=== PATIENT | female | born 1955 | race Caucasian/White ===

== ENCOUNTER 2017-04-28 19:20 | Emergency (ER) | payer BC ==
[2017-04-28] MEDS ORDERED: Ketorolac Tromethamine 30 MG/ML VIAL ONE (20:28)
[2017-04-28] MEDS ORDERED: diphenhydrAMINE HCl 50 MG/ML 1 ML VIAL ONE (20:28)
[2017-04-28] MEDS ORDERED: Metoclopramide HCl 10 MG/2 ML VIAL ONE (20:28)
[2017-04-28] MEDS ORDERED: methylPREDNISolone Sod Succ/PF 125 MG/2 ML VIAL ONE (21:59)
[2017-04-28] MEDS ORDERED: Magnesium Sulfate 2 GM/100 ML BAG ONE (21:59)
== END 2017-04-28 23:18 | disposition home or self-care (01) ==
LOC: ERS 19:20
DX: G43.909 Migraine, unspecified, not intractable, without status migrainosus (principal); M19.90 Unspecified osteoarthritis, unspecified site; K21.9 Gastro-esophageal reflux disease without esophagitis; E11.9 Type 2 diabetes mellitus without complications; I10 Essential (primary) hypertension; M06.9 Rheumatoid arthritis, unspecified; F41.9 Anxiety disorder, unspecified; F32.9 Major depressive disorder, single episode, unspecified
CPT/HCPCS: 96361; 96365; 96375; J1200; J1885; J2765; J2930; J3475

== ENCOUNTER 2017-10-28 04:04 | Observation (INO) | payer BC ==
[2017-10-28 05:19] LABS: #Basophils 0.1 thou/uL (0.0-0.2); #Eosinphils 0.7 thou/uL (0.0-0.7); #Lymphocytes 2.1 thou/uL (1.20-3.40); #Monocytes 0.7 thou/uL (0.11-0.59); #Neutrophils 6.9 thou/uL (1.40-6.50); %Basophils 0.8 % (0.0-1.0); %Eosinophils 6.7 % (0.0-10.0); %Lymphocytes 20.2 % (21.0-51.0); %Neutrophils 65.4 % (42.0-75.0); Hemoglobin 15.5 g/dL (12.0-16.0); Mean Corpuscular HGB CONC 33.5 g/dL (32.0-36.0); Mean Corpuscular Volume 89.5 fl (81.0-99.0); Mean Platelet Volume 6.8 fL (7.4-10.4); Platelet Count 279 thou/uL (130-400); RBC Distribution Width 11.7 % (11.5-14.5); Red Blood Cell (RBC) Count 5.17 mill/uL (4.20-5.40); White Blood Cell (WBC) Count 10.6 thou/uL (4.8-10.8)
[2017-10-28 05:31] LABS: ALT (SGPT) 32 U/L (8-55); AST (SGOT) 23 U/L (5-34); Albumin 4.5 g/dL (3.4-4.8); Alkaline Phosphatase 93 U/L (40-150); Anion Gap 10 mmol/L (10-20); BUN (Urea Nitrogen) 9 mg/dL (9.8-20.1); Bilirubin, Total 0.7 mg/dL (0.2-1.2); Calc. Creatinine Clearance 0 mL/min (70-130); Calcium 10.2 mg/dL (7.8-10.44); Carbon Dioxide 32 mmol/L (23-31); Chloride 100 mmol/L (98-107); Estimated GFR-MDRD 60; Globulin 3.4 g/dL (2.4-3.5); Glucose 170 mg/dL (80-115); Lipase 151 U/L (8-78); Potassium 3.3 mmol/L (3.5-5.1); Protein, Total 7.9 g/dL (6.0-8.3); Sodium 139 mmol/L (136-145)
[2017-10-28 05:35] LABS: CKMB 1.1 ng/mL (0-6.6); Troponin I Less than 0.010 ng/mL (< 0.028)
[2017-10-28] MEDS ORDERED: cloNIDine 0.1 MG TAB ONE (05:43)
[2017-10-28] MEDS ORDERED: Ondansetron HCl/PF 4 MG/2 ML Vial ONE (05:43)
[2017-10-28] MEDS ORDERED: hydrALAZINE 20 MG/ML VIAL SLOW IVP PRN (08:24)
[2017-10-28] MEDS ORDERED: hydrALAZINE 20 MG/ML VIAL ONE (08:30)
--- NOTE | 2017-10-28 09:39 | RAD ---
CHEST 1 VIEW: Date: 10/28/17 HISTORY: Nausea. Vomiting. COMPARISON: 01/07/17. FINDINGS: Normal cardiac silhouette. Pulmonary vessels and hilum are normal. Costophrenic angles are clear. No masses or consolidation. No pneumothorax or osseous abnormalities. IMPRESSION: No acute cardiopulmonary process. POS: [facility]
[2017-10-28 09:58] VITALS: BMI 30.7
[2017-10-28] MEDS ORDERED: Promethazine 25 MG TAB PO PRN (10:19)
[2017-10-28] MEDS ORDERED: Dextrose 5% in Water 1,000 ML IV PRN (10:19)
[2017-10-28] MEDS ORDERED: ALPRAZolam 0.25 MG TAB PO PRN (10:19)
[2017-10-28] MEDS ORDERED: Ondansetron ODT 4 MG TAB PO PRN (10:19)
[2017-10-28] MEDS ORDERED: cloNIDine 0.1 MG TAB PO PRN (10:19)
[2017-10-28] MEDS ORDERED: Ondansetron HCl/PF 4 MG/2 ML Vial IVP PRN (10:19)
[2017-10-28] MEDS ORDERED: Dextrose 50% Abboject 50 ML SYRINGE SLOW IVP PRN (10:19)
[2017-10-28] MEDS ORDERED: HumaLOG 300 UNITS/3 ML VIAL SC PRN ×2 (10:19)
[2017-10-28] MEDS ORDERED: Meclizine HCl 25 MG TAB PO PRN (10:19)
[2017-10-28] MEDS: Sodium Chloride 0.9% 1,000 ML IV SCH ×2 (10:20→21:15)
--- NOTE | 2017-10-28 11:11 | HP ---
DATE OF ADMISSION: 10/28/2017 PRIMARY CARE PHYSICIAN: Dr. Rabia Tang. PRIMARY ONCOLOGIST: Dr. Ken diaz [facility]. CHIEF COMPLAINT: Nausea and vomiting. HISTORY OF PRESENT ILLNESS: This is a 61-year-old female who presents to [facility] Emergency Department complaining of less than 24 hours of nausea, vomiting, and unab le to take oral medications. The patient denied any associated fever, chills, exposure history, matty el, or family members with similar symptoms. The patient took her home regimen of Zofran without rel ief. The patient does states she recently received lanreotide for carcinoid, diagnosed approximately 2 years ago in the abdominal cavity. The patient received her first dose of lanreotide 48 hours halle or to this evaluation and then developed symptoms as stated previously. The patient states she is ex pected to receive the same medication monthly and according to her medical oncologist. The patient d enied any associated diarrhea, hematemesis, chest pain, or shortness of breath. The patient's last r egular oral intake was in the last 36 hours. In the emergency room, the patient underwent general ev aluation receiving intravenous fluids as well as Zofran with mild relief of symptoms. The patient wa s also noted with elevated blood pressures with systolics in the 200s and diastolics in the 100 range . The patient received hydralazine and Catapres as well as 1 liter of normal saline and transferred to the observation unit for further evaluation. PAST MEDICAL HISTORY: 1. Carcinoid syndrome with current chemotherapy with lanreotide. 2. Rheumatoid arthritis. 3. Diabetes mellitus type 2, on oral hypoglycemics. 4. Gastroesophageal reflux disease. 5. Hyperlipidemia. 6. Hypertension. 7. Anxiety/depression. 8. History of chronic nausea and epigastric pain. 9. History of irritable bowel syndrome. 10. Nonalcoholic steatohepatitis. 11. Hypothyroidism. PAST SURGICAL HISTORY: 1. Status post resection for carcinoid tumor in 2016. 2. Status post multiple endoscopies and colonoscopies. 3. Status post cholecystectomy. 4. Status post appendectomy. 5. Status post section. 6. Status post colon polypectomy. 7. Status post total abdominal hysterectomy with bilateral salpingo-oophorectomy. CURRENT MEDICATIONS: 1. Enbrel 50 mg subcutaneously weekly. 2. Metformin 500 mg p.o. b.i.d. 3. Zofran 8 mg oral dissolving tablet q.4 hours p.r.n. 4. Ranitidine 300 mg p.o. b.i.d. 5. Crestor 40 mg p.o. at bedtime. 6. Xanax 0.25 mg p.o. t.i.d. 7. Bupropion 300 mg p.o. q.a.m. 8. Levothyroxine 50 mcg 1 tab p.o. daily. 9. Cytomel 5 mcg p.o. daily. 10. Lisinopril 40 mg p.o. daily. 11. Antivert 50 mg p.o. q.8 hours p.r.n. dizziness. 12. Promethazine 25 mg p.o. q.8 hours p.r.n. nausea or vomiting. 13. Propranolol 160 mg p.o. at bedtime. 14. Venlafaxine ER 75 mg p.o. daily. ALLERGIES: 1. MORPHINE SULFATE. 2. PENICILLIN. 3. PROCHLORPERAZINE. FAMILY HISTORY: Positive for migraine headaches in her grandmother and diabetes mellitus. SOCIAL HISTORY: The patient is , accompanied by her in the hospital. Employed at [employer] at [employer]. No current alcohol, tobacco or illicit drug use. Functional o f all activities of daily living. REVIEW OF SYSTEMS: The following complete review of systems was negative, unless otherwise mentioned in the HPI or below: Constitutional: Weight loss or gain, ability to conduct usual activities. Skin: Rash, itching. Eyes: Double vision, pain. ENT/Mouth: Nose bleeding, neck stiffness, pain, tenderness. Cardiovascular: Palpitations, dyspnea on exertion, orthopnea. Respiratory: Shortness of breath, wheezing, cough, hemoptysis, fever or night sweats. Gastrointestinal: Poor appetite, abdominal pain, heartburn, nausea, vomiting, constipation, or diarrhea. Genitourinary: Urgency, frequency, dysuria, nocturia. Musculoskeletal: Pain, swelling. Neurologic/Psychiatric: Anxiety, depression. Allergy/Immunologic: Skin rash, bleeding tendency. PHYSICAL EXAMINATION: VITAL SIGNS: Currently, blood pressure 199/88, pulse 65, respiratory rate 16, temperature 97.8 degre es Fahrenheit, O2 saturation 98% on room air. GENERAL APPEARANCE: This is a 61-year-old female, ill-appearing, responsive to questions. HEENT: Pupils are equal, round, and reactive to light and accommodation. Extraocular muscles are in tact. No scleral icterus. No conjunctival injection. Nares patent. OP is clear. Oral mucosa dry appearing. NECK: Supple. No cervical adenopathy, no thyromegaly, no carotid bruits, no JVD appreciated. Cervi adelita spine with full active and passive range of motion. No meningeal signs appreciated. CHEST: Lungs are clear to auscultation bilaterally. CARDIOVASCULAR: S1, S2 without noted murmur. ABDOMEN: Rounded, soft with diminished bowel sounds in all 4 quadrants. Mild tenderness to palpatio n in the right and left upper quadrants. No palpable mass. No rebound or guarding noted. EXTREMITIES: Warm and dry with fair turgor. No clubbing, cyanosis or asymmetric edema appreciated. Pulses palpable distally at the dorsalis pedis, posterior tibial, and popliteal arteries bilaterally . Capillary refill less than 2 seconds. NEUROLOGIC: Cranial nerves II-XII are grossly intact. No focal or lateralizing signs appreciated. PERTINENT LABORATORY AND X-RAY FINDINGS: Sodium 139, potassium 3.3, chloride 100, CO2 of 32, BUN 9, creatinine 0.95, estimated GFR 60, glucose 170. Lactic acid level 2.0, calcium 10.2. LFTs within no rmal limits. Lipase 151. CBC showed a white blood cell count of 10.6, hemoglobin 15.5, hematocrit 4 6, platelet count 279 with 65% neutrophils. Portable chest x-ray dated 10/28/2017 showed no acute ca rdiopulmonary process. EKG dated 10/28/2017 by my interpretation shows sinus bradycardia with heart rates in the 50s. Normal R-wave progression noted in the precordial leads. Left axis deviation. No acute ST-T wave changes appreciated. ASSESSMENT AND PLAN: 1. Intractable nausea and vomiting. The patient will be placed in observation status on the telemet ry unit. Suspect secondarily to fix a recent injection of lanreotide for history of carcinoid. We w ill continue supportive measures with IV fluids including normal saline at 100 mL per hour. Antiemet ics with Zofran 8 mg IV q.6 hours p.r.n. We will add additional Phenergan 25 mg p.o. q.6 hours p.r.n . Clear liquids as tolerated. Continue serial monitoring. 2. Elevated lipase. Suspect secondarily to #1 without acute pancreatitis. Suspect trend will decre ase with control of nausea and vomiting. Repeat lipase in the a.m. 3. Hypertension, uncontrolled. Suspect secondarily to poor oral intake and inability to take home b lood pressure regimen. Continue hydralazine 20 mg IV q.4 hours p.r.n. systolic greater than 170. Re sume home antihypertensive regimen when tolerating p.o. intake. Serial blood pressure monitoring. 4. Hypokalemia, mild. We will continue to control symptoms as stated in #1. Potassium supplementat ion 40 mEq b.i.d. x24 hours. 5. Carcinoid status post resection on current lanreotide. Stable currently. Continue supportive ma nagement. 6. Diabetes mellitus type 2, stable. Insulin sliding scale for reflexive coverage. Continue IV flu ids as outlined previously. Hold home metformin until tolerating p.o. and nausea and vomiting, resol marcel. 7. Prophylaxis. Sequential compression devices while in bed. Pepcid 20 mg IV q.12 hours. 8. Code status is full. Surrogate medical decision maker is patient's spouse.
[2017-10-28] MEDS ORDERED: Promethazine HCl 25 MG in Sodium Chloride 0.9% 50 ML IVPB PRN (11:34)
[2017-10-28] MEDS ORDERED: hydrALAZINE 20 MG/ML VIAL SLOW IVP SCH (11:45)
[2017-10-28] MEDS ORDERED: cloNIDine 0.2mg/24 Hour PATCH TD SCH (17:45)
[2017-10-28] MEDS: Famotidine/PF 20 mg/2ml Vial SLOW IVP SCH (18:38)
[2017-10-28] MEDS: Acetaminophen 500 MG TAB PO PRN (20:08)
[2017-10-28] MEDS ORDERED: Propranolol HCl LA 80 MG CAP PO SCH (21:00)
[2017-10-29] MEDS: Acetaminophen 500 MG TAB PO PRN ×3 (01:56→12:25)
[2017-10-29 06:01] LABS: ALT (SGPT) 22 U/L (8-55); AST (SGOT) 17 U/L (5-34); Albumin 3.8 g/dL (3.4-4.8); Alkaline Phosphatase 70 U/L (40-150); Anion Gap 10 mmol/L (10-20); BUN (Urea Nitrogen) 8 mg/dL (9.8-20.1); Bilirubin, Total 0.6 mg/dL (0.2-1.2); Calc. Creatinine Clearance 90 mL/min (70-130); Calcium 9.2 mg/dL (7.8-10.44); Carbon Dioxide 26 mmol/L (23-31); Chloride 105 mmol/L (98-107); Estimated GFR-MDRD 71; Globulin 2.7 g/dL (2.4-3.5); Glucose 151 mg/dL (80-115); Lipase 51 U/L (8-78); Potassium 3.3 mmol/L (3.5-5.1); Protein, Total 6.5 g/dL (6.0-8.3); Sodium 138 mmol/L (136-145)
[2017-10-29 06:12] LABS: Hemoglobin 13.5 g/dL (12.0-16.0); Lymphocytes 31 % (21-51); MDiff Complete? YES; Mean Corpuscular HGB CONC 33.4 g/dL (32.0-36.0); Mean Corpuscular Volume 89.7 fl (81.0-99.0); Mean Platelet Volume 6.9 fL (7.4-10.4); Monocytes 7 % (0-10); Neutrophil 59 % (42-75); PLT Morphology Comment Appears Adequate; Platelet Count 249 thou/uL (130-400); RBC Distribution Width 11.8 % (11.5-14.5); RBC Morphology Normal; Reactive Lymphocytes 3 % (0-10); Red Blood Cell (RBC) Count 4.49 mill/uL (4.20-5.40); White Blood Cell (WBC) Count 10.1 thou/uL (4.8-10.8)
[2017-10-29 08:57] VITALS: TEMP 98.3
[2017-10-29] MEDS ORDERED: Bupropion 150 MG XL TAB PO SCH (09:00)
[2017-10-29] MEDS ORDERED: Liothyronine Sodium 5 MCG TAB PO SCH (09:00)
[2017-10-29] MEDS ORDERED: Levothyroxine Sodium 50 MCG TAB PO SCH (09:00)
[2017-10-29] MEDS ORDERED: Venlafaxine HCl XR 75 MG CAP PO SCH (09:00)
[2017-10-29] MEDS: Sodium Chloride 0.9% 1,000 ML IV SCH (09:17)
[2017-10-29] MEDS: Famotidine/PF 20 mg/2ml Vial SLOW IVP SCH (09:19)
[2017-10-29] MEDS ORDERED: Potassium Chloride 20 MEQ TAB PO SCH (10:45)
[2017-10-29] MEDS ORDERED: Lisinopril 20 MG TAB PO SCH (10:45)
--- NOTE | 2017-10-29 11:16 | DIS ---
DATE OF ADMISSION: 10/28/2017 DATE OF DISCHARGE: 10/29/2017 DISCHARGE DIAGNOSES: 1. Intractable nausea and vomiting secondarily to lanreotide resolving. 2. Carcinoid syndrome with current chemotherapy with lanreotide. 3. Elevated lipase secondary to #1, resolved. 4. Hypertension, labile, improved. 5. Hypokalemia secondary to nausea and vomiting, resolved. 6. Diabetes mellitus type 2, stable. CONSULTATIONS: None. PERTINENT LABORATORY DATA AND X-RAY FINDINGS: Potassium 3.3, creatinine ranged between 0.82-0.95 wit h estimated GFR ranging between 60-71. Calcium ranged between 9.2-10.2. LFTs within normal limits. Lipase ranged between 51-151. CBC within normal limits. Portable chest x-ray dated 10/28/2017 show ed no acute cardiopulmonary process. HOSPITAL COURSE: The patient was observed after presenting with intractable nausea and vomiting afte r receiving an initial chemotherapy treatment with lanreotide on 10/26/2017. The patient developed p ersistent and intractable nausea and vomiting with associated hypokalemia and dehydration. Receiving IV fluids as well as multiple antiemetics including Zofran and Phenergan. The patient was slow to c linically improve, requiring consistent doses of antiemetics with eventual resolution of nausea and v omiting by the time of discharge. The patient also was noted with elevated blood pressures due to in ability to take p.o. home blood pressure regimen requiring IV and topical therapy for control. By th e time of discharge, patient is tolerating regular clear liquids, ambulating without assistance or di fficulty with stable vital signs. I have examined the patient at the time of discharge and counseled regarding need for followup and monitoring as well as discussions with her primary oncologist regard ing repeat treatment doses with lanreotide. Overall, patient remained clinically stable through the hospital course and ready for discharge on 10/29/2017. DISCHARGE MEDICATIONS: 1. Tylenol 500 mg p.o. every 6 hours p.r.n. 2. Xanax 0.25 mg p.o. t.i.d. 3. Bupropion XL 300 mg p.o. q.a.m. 4. Enbrel 50 mg subcutaneously every 7 days. 5. Levothyroxine 50 mcg p.o. daily. 6. Cytomel 5 mcg p.o. daily. 7. Lisinopril 40 mg p.o. daily. 8. Meclizine 50 mg p.o. q.8 hours p.r.n. dizziness. 9. Metformin 500 mg p.o. b.i.d. 10. Zofran 8 mg p.o. q.4-6 hours p.r.n. nausea, vomiting. 11. Promethazine 25 mg p.o. q.8 hours p.r.n. nausea, vomiting. 12. Propranolol extended release 160 mg p.o. at bedtime. 13. Ranitidine 300 mg p.o. b.i.d. 14. Crestor 40 mg p.o. at bedtime. 15. Venlafaxine ER 75 mg p.o. daily. FOLLOWUP: Patient to follow up with Dr. Tang within 7 days of discharge. The patient will follow up with Dr. Kendra Rogers at [facility] and to call her office for appointment time a nd date. CONDITION ON DISCHARGE: Stable. ACTIVITY: Ad gunnar. DIET: ADA. CODE STATUS: FULL. DISPOSITION: Home 10/29/2017.
[2017-10-29 12:27] VITALS: BP 170/72
[2017-11-02] MEDS ORDERED: Lisinopril 20 MG TAB PO SCH (09:00)
== END 2017-10-29 13:07 | disposition home or self-care (01) ==
LOC: ERS 04:04 → 2SW 09:54
PROVIDERS: ADMIT Internal Medicine; ATTEND Neuromusculoskeletal Medicine & OMM
DX: I16.0 Hypertensive urgency (principal); E87.6 Hypokalemia; E86.0 Dehydration; K85.90 Acute pancreatitis without necrosis or infection, unspecified; K21.9 Gastro-esophageal reflux disease without esophagitis; E11.9 Type 2 diabetes mellitus without complications; E78.00 Pure hypercholesterolemia, unspecified; I10 Essential (primary) hypertension; F41.9 Anxiety disorder, unspecified; F32.9 Major depressive disorder, single episode, unspecified; G43.909 Migraine, unspecified, not intractable, without status migrainosus; Z79.899 Other long term (current) drug therapy
CPT/HCPCS: 36415; 36416; 71045; 80053; 82553; 83605; 83690; 84484; 85007; 85025; 85027; 93005; 96361; 96374; 96375; J0360; J2405; J2550; J7050; Q0162; S0028

== ENCOUNTER 2017-12-05 09:41 | Emergency (ER) | payer BC ==
[2017-12-05] MEDS ORDERED: Ondansetron ODT 8 MG TAB ONE (10:11)
[2017-12-05 10:22] LABS: #Eosinphils 0.5 thou/uL (0.0-0.7); #Lymphocytes 1.7 thou/uL (1.20-3.40); #Monocytes 0.8 thou/uL (0.11-0.59); #Neutrophils 4.1 thou/uL (1.40-6.50); %Basophils 0.6 % (0.0-1.0); %Eosinophils 6.6 % (0.0-10.0); %Lymphocytes 24.1 % (21.0-51.0); %Monocytes 11.4 % (0.0-10.0); %Neutrophils 57.3 % (42.0-75.0); Hemoglobin 14.4 g/dL (12.0-16.0); Mean Corpuscular Hemoglobin 30.7 pg (27.0-31.0); Mean Corpuscular Volume 90.3 fl (81.0-99.0); Mean Platelet Volume 7.2 fL (7.4-10.4); Platelet Count 240 thou/uL (130-400); RBC Distribution Width 11.5 % (11.5-14.5); White Blood Cell (WBC) Count 7.2 thou/uL (4.8-10.8)
[2017-12-05 10:45] LABS: ALT (SGPT) 48 U/L (8-55); AST (SGOT) 37 U/L (5-34); Alkaline Phosphatase 80 U/L (40-150); Anion Gap 14 mmol/L (10-20); BUN (Urea Nitrogen) 11 mg/dL (9.8-20.1); Bilirubin, Total 0.5 mg/dL (0.2-1.2); Calc. Creatinine Clearance 0 mL/min (70-130); Carbon Dioxide 21 mmol/L (23-31); Chloride 107 mmol/L (98-107); Estimated GFR-MDRD 64; Globulin 2.6 g/dL (2.4-3.5); Glucose 84 mg/dL (80-115); Potassium 3.4 mmol/L (3.5-5.1); Protein, Total 6.6 g/dL (6.0-8.3); Sodium 139 mmol/L (136-145)
[2017-12-05 10:48] LABS: CKMB 0.8 ng/mL (0-6.6); Troponin I Less than 0.010 ng/mL (< 0.028)
[2017-12-05 12:45] LABS: Bilirubin Negative (Negative); Blood, Urine Negative (Negative); Clarity CLEAR (Clear); Glucose, Urine (Dipstick) Negative (Negative); Leukocyte Trace (Negative); Nitrite Negative (Negative); Protein, Urine (Dipstick) Negative (Neg-Trace); Specific Gravity, Urine 1.009 (1.002-1.036); Urobilinogen 0.2 mg/dL (0.2-1.0)
[2017-12-05 12:52] LABS: Bacteria/HPF None Seen HPF (None Seen); Hyaline Casts/LPF 0-3 HYALINE CAST LPF (0-3 Hyaline); RBC/HPF 0-3 HPF (0-3); Squamous Epithelial None Seen HPF (0-3)
== END 2017-12-05 13:30 | disposition home or self-care (01) ==
LOC: ERS 09:41
DX: R55 Syncope and collapse (principal); E86.0 Dehydration; N39.0 Urinary tract infection, site not specified; R19.7 Diarrhea, unspecified; R11.2 Nausea with vomiting, unspecified; K21.9 Gastro-esophageal reflux disease without esophagitis; G43.909 Migraine, unspecified, not intractable, without status migrainosus; E11.9 Type 2 diabetes mellitus without complications; I10 Essential (primary) hypertension; E78.00 Pure hypercholesterolemia, unspecified; M06.9 Rheumatoid arthritis, unspecified; M19.90 Unspecified osteoarthritis, unspecified site; F41.9 Anxiety disorder, unspecified; F32.9 Major depressive disorder, single episode, unspecified; Z79.84 Long term (current) use of oral hypoglycemic drugs; Z79.899 Other long term (current) drug therapy
CPT/HCPCS: 36415; 80053; 81003; 81015; 82553; 84484; 85025; 93005; 96360; 96361

== ENCOUNTER 2018-03-22 17:36 | Emergency (ER) | payer BC ==
[2018-03-22] MEDS ORDERED: Magnesium Sulfate 2 GM/100 ML BAG ONE (19:04)
[2018-03-22] MEDS ORDERED: Lidocaine 1% (PF) 30 ML VIAL ONE (19:04)
[2018-03-22] MEDS ORDERED: Ketorolac Tromethamine 30 MG/ML VIAL ONE (19:13)
[2018-03-22] MEDS ORDERED: diphenhydrAMINE 50 MG/ML VIAL ONE (19:36)
[2018-03-22] MEDS ORDERED: Metoclopramide HCl 10 MG/2 ML VIAL ONE (19:36)
[2018-03-22 19:41] LABS: #Eosinphils 0.4 thou/uL (0.0-0.7); #Lymphocytes 1.8 thou/uL (1.20-3.40); #Monocytes 0.6 thou/uL (0.11-0.59); #Neutrophils 7.4 thou/uL (1.40-6.50); %Basophils 0.4 % (0.0-1.0); %Eosinophils 3.9 % (0.0-10.0); %Lymphocytes 17.1 % (21.0-51.0); %Monocytes 6.3 % (0.0-10.0); %Neutrophils 72.3 % (42.0-75.0); Hemoglobin 14.1 g/dL (12.0-16.0); Mean Corpuscular Hemoglobin 31.9 pg (27.0-31.0); Mean Corpuscular Volume 91.2 fL (78.0-98.0); Mean Platelet Volume 7.5 fL (7.4-10.4); Platelet Count 204 thou/uL (130-400); RBC Distribution Width 11.9 % (11.5-14.5); Red Blood Cell (RBC) Count 4.43 mill/uL (4.20-5.40); White Blood Cell (WBC) Count 10.3 thou/uL (4.8-10.8)
[2018-03-22] MEDS ORDERED: cloNIDine 0.1 MG TAB ONE (19:55)
[2018-03-22 20:01] LABS: ALT (SGPT) 25 U/L (8-55); AST (SGOT) 31 U/L (5-34); Alkaline Phosphatase 72 U/L (40-150); Anion Gap 17 mmol/L (10-20); BUN (Urea Nitrogen) 11 mg/dL (9.8-20.1); Bilirubin, Total 0.6 mg/dL (0.2-1.2); Calc. Creatinine Clearance 0 mL/min (70-130); Calcium 9.7 mg/dL (7.8-10.44); Carbon Dioxide 23 mmol/L (23-31); Chloride 103 mmol/L (98-107); Estimated GFR-MDRD 60; Globulin 3.2 g/dL (2.4-3.5); Glucose 143 mg/dL (80-115); Magnesium 2.4 mg/dL (1.6-2.6); Potassium 4.5 mmol/L (3.5-5.1); Protein, Total 7.2 g/dL (6.0-8.3); Sodium 138 mmol/L (136-145)
--- NOTE | 2018-03-22 20:37 | CT ---
CT BRAIN 03/22/18 HISTORY: Headache. Noncontrast enhanced CT images of the brain is obtained on 03/22/18. Comparison made to previous exam from 01/07/17. Noncontrast enhanced CT images of the brain demonstrate the brain to be unremarkable. No evidence of intracranial masses, hemorrhages, strokes or contusions seen. Ventricles are of normal size. IMPRESSION: Normal CT brain. POS: [facility]
== END 2018-03-22 21:45 | disposition home or self-care (01) ==
LOC: ERS 17:36 → EEVIPCON 17:36 → ERS 21:45
DX: R51 Headache (principal); K21.9 Gastro-esophageal reflux disease without esophagitis; E11.9 Type 2 diabetes mellitus without complications; E78.00 Pure hypercholesterolemia, unspecified; I10 Essential (primary) hypertension; F41.9 Anxiety disorder, unspecified; F32.9 Major depressive disorder, single episode, unspecified; Z79.899 Other long term (current) drug therapy; Z79.84 Long term (current) use of oral hypoglycemic drugs
CPT/HCPCS: 70450; 80053; 83735; 85025; 96365; 96366; 96368; 96375; J1200; J1885; J2001; J2765; J3475

== ENCOUNTER 2018-06-16 10:47 | Emergency (ER) | payer BC ==
[2018-06-16] MEDS ORDERED: Ketorolac Tromethamine 30 MG/ML VIAL ONE (11:10)
[2018-06-16] MEDS ORDERED: diphenhydrAMINE 50 MG/ML VIAL ONE (11:10)
[2018-06-16] MEDS ORDERED: Metoclopramide HCl 10 MG/2 ML VIAL ONE (11:10)
== END 2018-06-16 13:00 | disposition home or self-care (01) ==
LOC: ERS 10:47
DX: G43.909 Migraine, unspecified, not intractable, without status migrainosus (principal); M19.90 Unspecified osteoarthritis, unspecified site; K21.9 Gastro-esophageal reflux disease without esophagitis; E11.9 Type 2 diabetes mellitus without complications; I10 Essential (primary) hypertension; F41.9 Anxiety disorder, unspecified; F32.9 Major depressive disorder, single episode, unspecified; Z79.899 Other long term (current) drug therapy; Z79.84 Long term (current) use of oral hypoglycemic drugs
CPT/HCPCS: 96365; 96366; 96375; J1200; J1885; J2765

== ENCOUNTER 2018-06-20 15:47 | Outpatient (CLI) | payer BC ==
--- NOTE | 2018-06-20 18:10 | MRI ---
MRA OF THE ABDOMEN UTILIZING IV CONTRAST 06/20/18 INDICATION: Concern for renal artery stenosis. 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 Both are widely patent. A single right renal artery. This is widely patent. Celiac, common hepatic and SMA artery origins are widely patent. The CORTEZ is widely pa tent. No aneurysmal dilatation is evident. The common iliac and iliac bifurcations appear patent. No free fluid is evident. IMPRESSION: No hemodynamically significant stenosis seen involving the renal arteries. POS: [facility]
== END 2018-06-20 15:48 | disposition home or self-care (01) ==
LOC: MRI 15:47
PROVIDERS: ATTEND Internal Medicine
DX: R03.1 Nonspecific low blood-pressure reading (principal)
CPT/HCPCS: 74185; C8900

== ENCOUNTER 2018-07-21 20:50 | Emergency (ER) | payer BC ==
[2018-07-21 21:18] LABS: #Basophils 0.1 thou/uL (0.0-0.2); #Eosinphils 0.2 thou/uL (0.0-0.7); #Lymphocytes 1.1 thou/uL (1.20-3.40); #Monocytes 0.5 thou/uL (0.11-0.59); #Neutrophils 3.5 thou/uL (1.40-6.50); %Eosinophils 3.4 % (0.0-10.0); %Lymphocytes 19.9 % (21.0-51.0); %Monocytes 9.7 % (0.0-10.0); Hemoglobin 14.7 g/dL (12.0-16.0); Mean Corpuscular HGB CONC 34.5 g/dL (32.0-36.0); Mean Corpuscular Hemoglobin 30.1 pg (27.0-31.0); Mean Platelet Volume 7.5 fL (7.4-10.4); Platelet Count 217 thou/uL (130-400); RBC Distribution Width 11.9 % (11.5-14.5); Red Blood Cell (RBC) Count 4.88 mill/uL (4.20-5.40); White Blood Cell (WBC) Count 5.3 thou/uL (4.8-10.8)
[2018-07-21 21:35] LABS: ALT (SGPT) 18 U/L (8-55); AST (SGOT) 22 U/L (5-34); Alkaline Phosphatase 82 U/L (40-150); Anion Gap 14 mmol/L (10-20); BUN (Urea Nitrogen) 8 mg/dL (9.8-20.1); Bilirubin, Total 0.9 mg/dL (0.2-1.2); CK (CPK) 50 U/L (29-168); Calc. Creatinine Clearance 0 mL/min (70-130); Calcium 9.8 mg/dL (7.8-10.44); Carbon Dioxide 28 mmol/L (23-31); Chloride 99 mmol/L (98-107); Estimated GFR-MDRD 54; Globulin 3.1 g/dL (2.4-3.5); Glucose 118 mg/dL (80-115); Potassium 3.6 mmol/L (3.5-5.1); Protein, Total 7.1 g/dL (6.0-8.3); Sodium 137 mmol/L (136-145)
[2018-07-21] MEDS ORDERED: Albuterol Sulfate 2.5 mg/3 ml Neb ONE (21:45)
--- NOTE | 2018-07-21 21:47 | RAD ---
PORTABLE CHEST: History: Dyspnea. Comparison: 10-28-17 FINDINGS: Lungs are clear. No infiltrate. No evidence of vascular congestion or edema. Heart size normal. IMPRESSION: No acute finding. POS: [facility]
[2018-07-21] MEDS ORDERED: Dexamethasone 4 mg/ml Vial ONE (21:55)
[2018-07-21] MEDS ORDERED: Sodium Chloride 0.9% 100 ML ONE (21:55)
[2018-07-21] MEDS ORDERED: cefTRIAXone\\ROCEPHIN 1 GM VIAL ONE (21:55)
[2018-07-21] MEDS ORDERED: Dexamethasone 10 MG/ML VIAL ONE (22:59)
== END 2018-07-22 00:35 | disposition home or self-care (01) ==
LOC: ERS 20:50
DX: J18.9 Pneumonia, unspecified organism (principal); G43.909 Migraine, unspecified, not intractable, without status migrainosus; K21.9 Gastro-esophageal reflux disease without esophagitis; E11.9 Type 2 diabetes mellitus without complications; E78.00 Pure hypercholesterolemia, unspecified; I10 Essential (primary) hypertension; M06.9 Rheumatoid arthritis, unspecified; F41.9 Anxiety disorder, unspecified; F32.9 Major depressive disorder, single episode, unspecified; Z79.84 Long term (current) use of oral hypoglycemic drugs; Z79.899 Other long term (current) drug therapy
CPT/HCPCS: 36415; 71045; 80053; 82550; 83880; 84484; 85025; 93005; 94760; 96361; 96365; 96375; J0696; J1100; J7050; J7611; J7620

== ENCOUNTER 2018-10-31 10:31 | Outpatient (CLI) | payer BC ==
--- NOTE | 2018-10-31 11:24 | CT ---
CT SINUSES: Date: 10/31/18 Multiple axial tomograms obtained through the sinuses with multiplanar reconstruction. INDICATION: Sinusitis. FINDINGS: Frontal air cells are well aerated and clear. The ethmoid air cells are well aerated. The maxillary s inuses are well aerated and clear. The sphenoid air cells are clear. No significant paranasal sinus m ucosal disease. The infundibula are patent. IMPRESSION: No evidence of paranasal sinus mucosal disease. POS: [facility]
== END 2018-10-31 10:32 | disposition home or self-care (01) ==
LOC: BICCT 10:31
PROVIDERS: ATTEND Internal Medicine
DX: J32.9 Chronic sinusitis, unspecified (principal); R51 Headache

== ENCOUNTER 2019-03-19 15:32 | Outpatient (CLI) | payer BC ==
--- NOTE | 2019-03-19 15:52 | RAD ---
EXAM: Two views chest PROVIDED CLINICAL HISTORY: Cough and fever. COMPARISON: 04/03/2017 FINDINGS: Cardiac silhouette and pulmonary vasculature are within normal limits. The lungs are clear. Remote l eft upper rib fracture is again seen. IMPRESSION: No acute cardiopulmonary process.
== END 2019-03-19 15:33 | disposition home or self-care (01) ==
LOC: BICRAD 15:32
PROVIDERS: ATTEND Internal Medicine
DX: R06.00 Dyspnea, unspecified (principal); R05 Cough
CPT/HCPCS: 71046

== ENCOUNTER 2019-03-24 13:00 | Outpatient (CLI) | payer BC ==
--- NOTE | 2019-03-25 06:48 | MMO ---
Bilateral MAMMO Bilat Screen [facility]. CLINICAL HISTORY: Patient is 63 years old and is seen for screening. The patient has the following family history of breast cancer: sister, at age 62. The patient has a history of other cancer. VIEWS: The views performed were: bilateral craniocaudal with tomosynthesis and bilateral mediolateral oblique with tomosynthesis. FILMS COMPARED: The present examination has been compared to prior imaging studies performed at [facility] on 11/18/2013, 11/19/2014, 02/16/2016 and 02/19/2017. MAMMOGRAM FINDINGS: There are scattered fibroglandular densities. There are stable benign appearing calcifications seen in both breasts. There are no suspicious masses, suspicious calcifications, or new areas of architectural distortion. IMPRESSION: THERE IS NO MAMMOGRAPHIC EVIDENCE OF MALIGNANCY. A ROUTINE FOLLOW-UP MAMMOGRAM IN 1 YEAR IS RECOMMENDED. THE RESULTS OF THIS EXAM WERE SENT TO THE PATIENT. ACR BI-RADS Category 2 - Benign finding MAMMOGRAPHY NOTE: 1. A negative mammogram report should not delay a biopsy if a dominant of clinically suspicious mass is present. 2. Approximately 10% to 15% of breast cancers are not detected by mammography. 3. Adenosis and dense breasts may obscure an underlying neoplasm. Reported by: BLANE NASSAR MD Electonically Signed: [id number]
== END 2019-03-24 13:01 | disposition home or self-care (01) ==
LOC: BICMAMMO 13:00
PROVIDERS: ATTEND Internal Medicine
DX: Z12.31 Encounter for screening mammogram for malignant neoplasm of breast (principal); Z80.3 Family history of malignant neoplasm of breast
CPT/HCPCS: 77063; 77067

== ENCOUNTER 2020-05-06 00:46 | Emergency (ER) | payer MEDICARE, OTHER ==
[2020-05-06] MEDS ORDERED: HYDROcodone/Acetaminophen 5/325 mg Tablet ONE (01:03)
[2020-05-06] MEDS ORDERED: HYDROcodone/Acetaminophen 7.5/325 mg Tablet ONE (01:06)
[2020-05-06] MEDS ORDERED: Fentanyl 100 MCG/2 ML VIAL ONE ×2 (02:16→03:34)
[2020-05-06] MEDS ORDERED: Dexamethasone 10 MG/ML VIAL ONE (02:55)
== END 2020-05-06 04:08 | disposition home or self-care (01) ==
LOC: ERS 00:46
DX: M06.9 Rheumatoid arthritis, unspecified (principal); K21.9 Gastro-esophageal reflux disease without esophagitis; G43.909 Migraine, unspecified, not intractable, without status migrainosus; E11.9 Type 2 diabetes mellitus without complications; E78.00 Pure hypercholesterolemia, unspecified; E78.5 Hyperlipidemia, unspecified; F41.9 Anxiety disorder, unspecified; F32.9 Major depressive disorder, single episode, unspecified; Z79.84 Long term (current) use of oral hypoglycemic drugs; Z79.899 Other long term (current) drug therapy
CPT/HCPCS: 96374; 96375; 96376; J1100; J3010

== ENCOUNTER 2021-02-21 13:46 | Observation (INO) | payer MEDICARE ==
[2021-02-22 00:44] VITALS: BMI 28.0
[2021-02-22 11:59] VITALS: BP 132/65; TEMP 98.1
== END 2021-02-22 14:43 | disposition home or self-care (01) ==
LOC: ERS 13:46 → SUATTDRO 13:46 → 2SW 18:05
PROVIDERS: ADMIT Internal Medicine; ATTEND Internal Medicine
DX: R55 Syncope and collapse (principal); I95.9 Hypotension, unspecified; I10 Essential (primary) hypertension; I25.10 Atherosclerotic heart disease of native coronary artery without angina pectoris; E11.9 Type 2 diabetes mellitus without complications; R07.9 Chest pain, unspecified; K75.81 Nonalcoholic steatohepatitis (NASH); K21.9 Gastro-esophageal reflux disease without esophagitis; E03.9 Hypothyroidism, unspecified; M06.9 Rheumatoid arthritis, unspecified; F41.9 Anxiety disorder, unspecified; F32.9 Major depressive disorder, single episode, unspecified; E78.00 Pure hypercholesterolemia, unspecified; E66.9 Obesity, unspecified; Z68.28 Body mass index [BMI] 28.0-28.9, adult; Z79.84 Long term (current) use of oral hypoglycemic drugs; Z79.899 Other long term (current) drug therapy; Z88.0 Allergy status to penicillin; Z88.2 Allergy status to sulfonamides; Z88.5 Allergy status to narcotic agent; Z88.8 Allergy status to other drugs, medicaments and biological substances
CPT/HCPCS: 71045; 80048; 80053; 80061; 82962; 83880; 84484 ×2; 85025 ×2; 93005; 93306; 99285; G0378 ×3; 36415; 36416

== ENCOUNTER 2021-03-07 18:55 | Observation (INO) | payer MEDICARE ==
[2021-03-07] MEDS ORDERED: Fentanyl 100 MCG/2 ML VIAL ONE (20:49)
[2021-03-07] MEDS ORDERED: Ondansetron PF 4 MG/2 ML Vial ONE ×2 (20:49→22:37)
[2021-03-07 21:39] LABS: #Eosinphils 0.1 thou/uL (0.0-0.7); #Lymphocytes 1.5 thou/uL (1.20-3.40); #Neutrophils 10.3 thou/uL (1.40-6.50); %Basophils 0.3 % (0.0-1.0); %Eosinophils 0.9 % (0.0-10.0); %Lymphocytes 11.5 % (21.0-51.0); %Monocytes 7.6 % (0.0-10.0); %Neutrophils 79.6 % (42.0-75.0); Hemoglobin 14.9 g/dL (12.0-16.0); Mean Corpuscular Hemoglobin 31.3 pg (27.0-31.0); Mean Corpuscular Volume 92.1 fL (78.0-98.0); Mean Platelet Volume 7.2 fL (7.4-10.4); Platelet Count 266 thou/uL (130-400); RBC Distribution Width 11.3 % (11.5-14.5); Red Blood Cell (RBC) Count 4.76 mill/uL (4.20-5.40); White Blood Cell (WBC) Count 12.9 thou/uL (4.8-10.8)
[2021-03-07 22:05] LABS: ALT (SGPT) 14 U/L (8-55); AST (SGOT) 22 U/L (5-34); Albumin 3.8 g/dL (3.4-4.8); Alkaline Phosphatase 96 U/L (40-110); Anion Gap 16 mmol/L (10-20); BUN (Urea Nitrogen) 17 mg/dL (9.8-20.1); Bilirubin, Total 0.6 mg/dL (0.2-1.2); Calc. Creatinine Clearance 0 mL/min (70-130); Calcium 8.8 mg/dL (7.8-10.44); Carbon Dioxide 21 mmol/L (23-31); Chloride 98 mmol/L (98-107); Globulin 3.5 g/dL (2.4-3.5); Glucose 121 mg/dL (80-115); Potassium 4.5 mmol/L (3.5-5.1); Protein, Total 7.3 g/dL (5.8-8.1); Sodium 130 mmol/L (136-145)
[2021-03-07] MEDS ORDERED: Pantoprazole 40 MG VIAL ONE (22:37)
[2021-03-07] MEDS ORDERED: Aspirin Chewable 81 MG TAB ONE (22:38)
[2021-03-08 01:21] LABS: Troponin I Less than 0.010 ng/mL (< 0.028)
[2021-03-08] MEDS ORDERED: Sodium Chloride 0.9% 1,000 ML IV SCH (02:15)
[2021-03-08] MEDS ORDERED: Ondansetron PF 4 MG/2 ML Vial IVP PRN (02:15)
[2021-03-08] MEDS ORDERED: Acetaminophen 325 MG TAB PO PRN (02:15)
[2021-03-08] MEDS ORDERED: Ondansetron ODT 4 MG TAB SL PRN (02:15)
[2021-03-08 05:09] LABS: Troponin I Less than 0.010 ng/mL (< 0.028)
[2021-03-08 05:43] LABS: Bacteria/HPF None Seen HPF (None Seen); Bilirubin Negative (Negative); Blood, Urine Negative (Negative); Clarity Clear (Clear); Glucose, Urine (Dipstick) Normal (Negative); Ketone, Urine 10 mg/dL (Negative); Leukocyte 500 Leu/uL (Negative); Nitrite Negative (Negative); Protein, Urine (Dipstick) Negative (Neg-Trace); RBC/HPF 0-3 HPF (0-3); Specific Gravity, Urine 1.013 (1.002-1.036); Transitional Epithelial 0-3 HPF (None Seen); Urobilinogen Normal mg/dL (Less than 2); WBC/HPF Greater than 50 HPF (0-3); pH, Urine 5.5 (5.0-9.0)
[2021-03-08] MEDS ORDERED: Senokot S 8.6-50 MG TAB PO PRN (08:13)
[2021-03-08] MEDS ORDERED: Enoxaparin Sodium 40 MG/0.4 ML SYRINGE SC SCH (08:15)
[2021-03-08] MEDS ORDERED: Meclizine HCl 12.5 MG TAB PO PRN (08:29)
[2021-03-08] MEDS ORDERED: SUMAtriptan Succinate 50 MG TAB PO PRN (08:36)
[2021-03-08] MEDS ORDERED: Cyclobenzaprine 10 MG TAB PO PRN ×2 (08:39→08:45)
[2021-03-08] MEDS ORDERED: Ferrous Sulfate 325 MG TAB PO SCH (08:45)
[2021-03-08 08:51] LABS: SARS-CoV-2 PCR by NAA Not Detected (NotDetected)
[2021-03-08] MEDS ORDERED: Enoxaparin Sodium 40 MG/0.4 ML SYRINGE ONE (09:00)
[2021-03-08] MEDS ORDERED: Lisinopril 10 MG TAB ONE (09:00)
[2021-03-08] MEDS ORDERED: Dextrose 50% Abboject 50 ML SYRINGE SLOW IVP PRN (09:06)
[2021-03-08] MEDS ORDERED: Dextrose 5% in Water 1,000 ML IV PRN (09:06)
[2021-03-08] MEDS: Lisinopril 10 MG TAB PO SCH (09:06)
[2021-03-08] MEDS ORDERED: HumaLOG 300 UNITS/3 ML VIAL SC PRN (09:06)
[2021-03-08] MEDS: Bupropion 150 MG XL TAB PO SCH (10:45)
[2021-03-08] MEDS: Metoclopramide HCl 10 MG/2 ML VIAL IVP SCH ×3 (15:35→22:20)
[2021-03-08 15:41] VITALS: BMI 27.3
[2021-03-08] MEDS: Acetaminophen 500 MG TAB PO PRN ×2 (16:00→20:53)
[2021-03-08] MEDS ORDERED: Magnesium Oxide 400 MG TAB PO SCH (21:00)
[2021-03-08] MEDS ORDERED: Amitriptyline HCl 10 MG TAB PO SCH (21:00)
[2021-03-08] MEDS ORDERED: Rosuvastatin 5 MG TAB PO SCH (21:00)
[2021-03-08] MEDS ORDERED: Folic Acid 1 MG TAB PO SCH (21:00)
[2021-03-09] MEDS: Metoclopramide HCl 10 MG/2 ML VIAL IVP SCH (04:21)
[2021-03-09] MEDS ORDERED: Metoclopramide HCl 10 MG/2 ML VIAL IVP SCH ×2 (05:15→10:00)
[2021-03-09 05:26] LABS: #Eosinphils 0.2 thou/uL (0.0-0.7); #Lymphocytes 1.1 thou/uL (1.20-3.40); #Monocytes 0.4 thou/uL (0.11-0.59); #Neutrophils 2.9 thou/uL (1.40-6.50); %Basophils 0.5 % (0.0-1.0); %Eosinophils 4.6 % (0.0-10.0); %Lymphocytes 24.4 % (21.0-51.0); %Monocytes 8.5 % (0.0-10.0); Hemoglobin 12.6 g/dL (12.0-16.0); Mean Corpuscular HGB CONC 34.2 g/dL (32.0-36.0); Mean Corpuscular Hemoglobin 31.2 pg (27.0-31.0); Mean Corpuscular Volume 91.2 fL (78.0-98.0); Mean Platelet Volume 7.2 fL (7.4-10.4); Platelet Count 202 thou/uL (130-400); RBC Distribution Width 11.1 % (11.5-14.5); Red Blood Cell (RBC) Count 4.05 mill/uL (4.20-5.40); White Blood Cell (WBC) Count 4.7 thou/uL (4.8-10.8)
[2021-03-09 05:48] LABS: Anion Gap 11 mmol/L (10-20); BUN (Urea Nitrogen) 13 mg/dL (9.8-20.1); Calc. Creatinine Clearance 76 mL/min (70-130); Calcium 8.8 mg/dL (7.8-10.44); Carbon Dioxide 21 mmol/L (23-31); Chloride 108 mmol/L (98-107); Glucose 114 mg/dL (80-115); Potassium 3.9 mmol/L (3.5-5.1); Sodium 136 mmol/L (136-145)
[2021-03-09] MEDS ORDERED: Levothyroxine Sodium 75 MCG TAB PO SCH (06:00)
[2021-03-09] MEDS: Acetaminophen 500 MG TAB PO PRN (07:37)
[2021-03-09 07:56] VITALS: TEMP 97.6
[2021-03-09] MEDS: Lisinopril 10 MG TAB PO SCH (08:51)
[2021-03-09] MEDS: Bupropion 150 MG XL TAB PO SCH (08:51)
[2021-03-09 13:01] VITALS: BP 143/83
== END 2021-03-09 14:22 | disposition home or self-care (01) ==
LOC: ERS 18:55 → ERHOLD 22:59 → 2SW 03-08 15:34
PROVIDERS: ADMIT Student in an Organized Health Care Education/Training Program; ATTEND Student in an Organized Health Care Education/Training Program
DX: R11.2 Nausea with vomiting, unspecified (principal); R19.7 Diarrhea, unspecified; R07.9 Chest pain, unspecified; I10 Essential (primary) hypertension; E03.9 Hypothyroidism, unspecified; E11.9 Type 2 diabetes mellitus without complications; M06.9 Rheumatoid arthritis, unspecified; K21.9 Gastro-esophageal reflux disease without esophagitis; F41.9 Anxiety disorder, unspecified; F32.9 Major depressive disorder, single episode, unspecified; E66.01 Morbid (severe) obesity due to excess calories; Z68.27 Body mass index [BMI] 27.0-27.9, adult; Z20.822 Contact with and (suspected) exposure to COVID-19; Z88.0 Allergy status to penicillin; Z88.2 Allergy status to sulfonamides; Z88.5 Allergy status to narcotic agent; Z88.8 Allergy status to other drugs, medicaments and biological substances; Z79.84 Long term (current) use of oral hypoglycemic drugs; Z79.899 Other long term (current) drug therapy
CPT/HCPCS: 71045; 80048; 80053; 82962 ×3; 84484 ×3; 85025 ×2; 93005; 96374; 96375; 96376; 99285; U0003; U0005; 36415; 36416; 81003; 81015; 96372; C9113; G0378; J1650; J2405; J2765; J3010

== ENCOUNTER 2021-03-15 10:02 | Emergency (ER) | payer MEDICARE ==
[2021-03-15] MEDS ORDERED: Ketorolac Tromethamine 30 MG/ML VIAL ONE (11:26)
[2021-03-15] MEDS ORDERED: Dicyclomine 20 MG TAB ONE (11:26)
[2021-03-15 11:28] LABS: #Eosinphils 0.1 thou/uL (0.0-0.7); #Lymphocytes 1.2 thou/uL (1.20-3.40); #Monocytes 0.9 thou/uL (0.11-0.59); #Neutrophils 12.1 thou/uL (1.40-6.50); %Basophils 0.3 % (0.0-1.0); %Eosinophils 0.4 % (0.0-10.0); %Lymphocytes 8.1 % (21.0-51.0); %Monocytes 6.4 % (0.0-10.0); %Neutrophils 84.8 % (42.0-75.0); Mean Corpuscular HGB CONC 32.7 g/dL (32.0-36.0); Mean Corpuscular Hemoglobin 29.7 pg (27.0-31.0); Mean Corpuscular Volume 90.6 fL (78.0-98.0); Platelet Count 293 thou/uL (130-400); RBC Distribution Width 11.2 % (11.5-14.5); Red Blood Cell (RBC) Count 5.74 mill/uL (4.20-5.40); White Blood Cell (WBC) Count 14.3 thou/uL (4.8-10.8)
[2021-03-15 11:59] LABS: ALT (SGPT) 17 U/L (8-55); AST (SGOT) 22 U/L (5-34); Albumin 4.1 g/dL (3.4-4.8); Alkaline Phosphatase 122 U/L (40-110); Anion Gap 17 mmol/L (10-20); BUN (Urea Nitrogen) 14 mg/dL (9.8-20.1); Bilirubin, Total 0.5 mg/dL (0.2-1.2); Calc. Creatinine Clearance 0 mL/min (70-130); Calcium 9.9 mg/dL (7.8-10.44); Carbon Dioxide 27 mmol/L (23-31); Chloride 96 mmol/L (98-107); Globulin 3.2 g/dL (2.4-3.5); Glucose 132 mg/dL (80-115); Lipase 22 U/L (8-78); Potassium 4.1 mmol/L (3.5-5.1); Protein, Total 7.3 g/dL (5.8-8.1); Sodium 136 mmol/L (136-145)
== END 2021-03-15 14:25 | disposition home or self-care (01) ==
LOC: ERS 10:02
DX: R11.2 Nausea with vomiting, unspecified (principal); G43.909 Migraine, unspecified, not intractable, without status migrainosus; K21.9 Gastro-esophageal reflux disease without esophagitis; E11.9 Type 2 diabetes mellitus without complications; I10 Essential (primary) hypertension; M06.9 Rheumatoid arthritis, unspecified; Z79.899 Other long term (current) drug therapy
CPT/HCPCS: 71045; 80053; 83605; 83690; 84484; 85025; 93005; 96374; J1885